=== PATIENT | female | born 1955 | race Caucasian/White ===

== ENCOUNTER 2016-12-22 14:27 | Observation (INO) | payer BC ==
[2016-12-22] MEDS ORDERED: ATROPINE SULFATE 1 MG/10 ML SYR ONE (14:34)
[2016-12-22] MEDS ORDERED: ATROPINE SULFATE 1 MG/10 ML SYR IVP ONE (14:35)
[2016-12-22] MEDS ORDERED: CALCIUM GLUCONATE 50 ML IV ONE (14:36)
[2016-12-22] MEDS ORDERED: GLUCAGON,HUMAN RECOMBINANT 1 MG VIAL IVP ONE (14:36)
--- NOTE | 2016-12-22 14:40 | CPEKG ---
Heart Rate: 55 RR Interval: 1091 P-R Interval: 216 QRSD Interval: 92 QT Interval: 500 QTC Interval: 479 P [place]: 55 QRS [place]: 44 T Wave [place]: 69 EKG Severity - ABNORMAL ECG - EKG Impression: SINUS RHYTHM Electronically Signed By: Quique Smith 22-Dec-2016 15:08:42
--- NOTE | 2016-12-22 14:52 | EDPHY ---
H & P Time Seen by Provider: 12/22/16 14:44 HPI/ROS: CHIEF COMPLAINT: Symptomatic hypotension and bradycardia HISTORY OF PRESENT ILLNESS: The patient has a history of atrial fibrillation. She has been on flecainide for approximately 3 weeks. 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 She took 25 mg of metoprolol at 10 o'clock this morning. While at work, the patient developed symptoms of presyncope. She was noted to have a systolic blood pressure in the 70-80 range. Patient was brought in by paramedics. She received a 700 ml of IV fluid in the ambulance. The patient does have a history of diabetes. The patient is apparently being scheduled for an ablation. REVIEW OF SYSTEMS: A comprehensive 10 point review of systems is otherwise negative aside from elements mentioned in the history of present illness. Source: Patient Exam Limitations: No limitations - Personal History Current Tetanus/Diphtheria Vaccine: Yes - Medical/Surgical History PMH: Past medical history: Hypertension, diabetes, atrial fibrillation - Family History Significant Family History: No pertinent family hx - Social History Smoking Status: Never smoked - Physical Exam Exam: General Appearance: Alert, no distress Eyes: Pupils equal and round no pallor or injection ENT, Mouth: Mucous membranes moist Respiratory: There are no retractions, lungs are clear to auscultation Cardiovascular: Bradycardic Gastrointestinal: Abdomen is soft and nontender, no masses, bowel sounds normal Neurological: A&O, normal motor function, normal sensory exam, normal cranial nerves Skin: Warm and dry, no rashes Musculoskeletal: Neck is supple nontender Extremities: symmetrical, full range of motion Constitutional: Initial Vital Signs Temperature (C) 36.2 C 12/22/16 14:30 Heart Rate 54 L 12/22/16 14:30 Respiratory Rate 20 12/22/16 14:30 Blood Pressure 83/63 L 12/22/16 14:30 O2 Sat (%) 99 12/22/16 14:30 O2 Delivery Mode Room Air Allergies/Adverse Reactions: No Known Allergies Allergy (Unverified 12/22/16 14:59) Home Medications: Medication Instructions Recorded Cetirizine [ZyrTEC 10 mg (*)] 10 mg PO DAILY PRN 12/22/16 Dapagliflozin Propanediol [Farxiga] 5 mg PO DAILY 12/22/16 Diclofenac Sodium [Voltaren 75 MG 75 mg PO DAILY 12/22/16 (*)] Ergocalciferol [Vitamin D2 (*)] 50,000 unit PO BARRAZA 12/22/16 Escitalopram Oxalate [Lexapro] 20 mg PO BID 12/22/16 Fenofibric Acid (Choline) 135 mg PO DAILY 12/22/16 [TRILIPIX] Flecainide Acetate 150 mg PO BID 12/22/16 Insulin Glargine,Hum.rec.anlog 10 unit SQ DAILY 12/22/16 [Toujeo Solostar] Lactase [Lactase 3000 Unit (*)] 3,000 unit PO TIDMEAL PRN 12/22/16 Lovastatin 40 mg PO DAILY18 12/22/16 Metformin HCl [Metformin 1000 mg] 1,000 mg PO DAILY 12/22/16 Metoprolol Tartrate [Lopressor 25 25 mg PO BID 12/22/16 mg (*)] Rivaroxaban [Xarelto] 20 mg PO DAILY@1200 12/22/16 Vilazodone HCl [Viibryd] 40 mg PO HS 12/22/16 sitaGLIPtin PHOSPHATE [Januvia 100 100 mg PO DAILY 12/22/16 MG (*)] traZODone [traZODONE 50MG (*)] 50 mg PO HS 12/22/16 Medical Decision Making - Diagnostics EKG Interpretation: EKG: Complete interpretation has been separately recorded in the [facility] archive. Summary impression: Sinus rhythm, rate 55 ED Course/Re-evaluation: The patient presents the ED with symptomatic hypotension relative bradycardia in the setting of a newly prescribed dose of metoprolol. The patient is currently on flecainide. The patient took 25 mg of metoprolol for the 1st time today. The patient experienced lightheadedness and dizziness. She had no true syncope. The patient reportedly had systolic blood pressure as low as 70 noted by paramedics. Upon arrival her blood pressure is 80/50. The patient had an IV established. She was placed on a building principal. Pacemaker pads were applied to her chest wall. The patient received an additional dose of IV fluids , 1 mg of atropine, calcium gluconate and glucagon. The patient was brought into the trauma resuscitation room. The patient is currently mentating appropriately. The patient will require admission to the hospital for observation in the setting of her relative hypotension or bradycardia. Consultation is made with Dr. Isac Markham from the hospitalist service. The patient did undergo a stat echocardiogram in the emergency department which demonstrates a normal ejection fraction and no evidence of a pericardial effusion. Differential Diagnosis: Differential diagnosis considered includes heart block, beta-dexter overdose, cardiogenic shock Critical Care Time: Critical care time exclusive of procedures and exclusive of the PA's time was 35 minutes, performed by myself, Quique Smith MD. The patient presents to the ED with symptomatic hypotension and possible beta-dexter toxicity. The patient required IV calcium, glucagon atropine. Curbside consultation was made with Cardiology. The patient will require admission to the intensive care unit for observation this evening. Consultation was made with Dr. cortez from the hospitalist service. - Data Points Laboratory Results: Laboratory Results 12/22/16 14:31 12/22/16 14:31 12/22/16 12/22/16 12/22/16 14:31 14:31 14:31 WBC 8.33 10^3/uL 10^3/uL (3.80-9.50) RBC 4.30 10^6/uL 10^6/uL (4.18-5.33) Hgb 12.7 g/dL g/dL (12.6-16.3) Hct 39.7 % % (38.0-47.0) MCV 92.3 fL fL (81.5-99.8) MCH 29.5 pg pg (27.9-34.1) MCHC 32.0 g/dL L g/dL (32.4-36.7) RDW 13.0 % % (11.5-15.2) Plt Count 246 10^3/uL 10^3/uL (150-400) MPV 10.9 fL fL (8.7-11.7) Neut % (Auto) 62.7 % % (39.3-74.2) Lymph % (Auto) 24.1 % % (15.0-45.0) [place] % (Auto) 9.0 % % (4.5-13.0) Eos % (Auto) 3.0 % % (0.6-7.6) Baso % (Auto) 1.0 % % (0.3-1.7) Nucleat RBC Rel Count 0.0 % % (0.0-0.2) Absolute Neuts (auto) 5.22 10^3/uL 10^3/uL (1.70-6.50) Absolute Lymphs (auto) 2.01 10^3/uL 10^3/uL (1.00-3.00) Absolute Monos (auto) 0.75 10^3/uL 10^3/uL (0.30-0.80) Absolute Eos (auto) 0.25 10^3/uL 10^3/uL (0.03-0.40) Absolute Basos (auto) 0.08 10^3/uL 10^3/uL (0.02-0.10) Absolute Nucleated RBC 0.00 10^3/uL 10^3/uL (0-0.01) Immature Gran % 0.2 % % (0.0-1.1) Immature Gran # 0.02 10^3/uL 10^3/uL (0.00-0.10) Sodium 140 mEq/L mEq/L (134-144) Potassium 4.6 mEq/L mEq/L (3.5-5.2) Chloride 105 mEq/L mEq/L (97-110) Carbon Dioxide 19 mEq/l L mEq/l (22-31) Anion Gap 16 mEq/L mEq/L (8-16) BUN 18 mg/dL mg/dL (7-23) Creatinine 1.2 mg/dL H mg/dL (0.6-1.0) Estimated GFR 46 Glucose 152 mg/dL H mg/dL (70-100) Calcium 9.8 mg/dL mg/dL (8.5-10.4) Total Bilirubin 0.6 mg/dL mg/dL (0.1-1.4) Conjugated Bilirubin 0.4 mg/dL mg/dL (0.0-0.5) Unconjugated Bilirubin 0.2 mg/dL mg/dL (0.0-1.1) AST 48 IU/L H IU/L (14-46) ALT 45 IU/L IU/L (9-52) Alkaline Phosphatase 54 IU/L IU/L (38-126) Total Protein 7.0 g/dL g/dL (6.3-8.2) Albumin 4.1 g/dL g/dL (3.5-5.0) Medications Given: Sodium Chloride (Ns) 1,000 mls @ 100 mls/hr IV CONT LATASHA Stop: 06/20/17 15:44 Last Admin: 12/22/16 16:09 Dose: 1,000 mls Discontinued Medications Atropine Sulfate (Atropine 1 Mg/10 Ml Syringe) 1 mg IVP EDNOW ONE Stop: 12/22/16 14:36 Last Admin: 12/22/16 14:35 Dose: 1 mg Glucagon (Glucagen) 5 mg IVP EDNOW ONE Stop: 12/22/16 14:37 Last Admin: 12/22/16 15:00 Dose: 5 mg Calcium Gluconate (Calcium Gluconate 1 Gm (Premix)) 50 mls @ 100 mls/hr IV EDNOW ONE Stop: 12/22/16 15:05 Last Admin: 12/22/16 14:58 Dose: 50 mls Ondansetron HCl (Zofran) 4 mg IVP EDNOW ONE Stop: 12/22/16 15:18 Last Admin: 12/22/16 15:18 Dose: 4 mg Departure - Departure Disposition: [facility] Acute Clinical Impression: Hypotension, Bradycardia Condition: Serious
[2016-12-22 14:56] LABS: % IMMATURE GRANULYOCYTES 0.2 % (0.0-1.1); ABSOLUTE IMMATURE GRANULOCYTES 0.02 10^3/uL (0.00-0.10); ADD DIFF? NO; ADD MORPH? NO; ADD SCAN? NO; ATYPICAL LYMPHOCYTE FLAG 10 (0-99); FRAGMENT RBC FLAG 0 (0-99); HEMATOCRIT 39.7 % (38.0-47.0); HEMOGLOBIN 12.7 g/dL (12.6-16.3); LEFT SHIFT FLG 0 (0-99); LIPEMIA HEMOLYSIS FLAG 80 (0-99); MEAN CELL HEMOGLOBIN 29.5 pg (27.9-34.1); MEAN CELL VOLUME 92.3 fL (81.5-99.8); MEAN PLATELET VOLUME 10.9 fL (8.7-11.7); PLATELET CLUMPS FLAG 20 (0-99); PLATELET COUNT 246 10^3/uL (150-400)
[2016-12-22 15:04] LABS: ANION GAP 16 mEq/L (8-16); CALCIUM 9.8 mg/dL (8.5-10.4); CARBON DIOXIDE 19 mEq/l (22-31); CHLORIDE 105 mEq/L (97-110); CREATININE 1.2 mg/dL (0.6-1.0); GLOMERULAR FILTRATION RATE 46; GLUCOSE 152 mg/dL (70-100); POTASSIUM 4.6 mEq/L (3.5-5.2); SODIUM 140 mEq/L (134-144)
[2016-12-22] MEDS ORDERED: ONDANSETRON 4 MG/2 ML VIAL ONE (15:06)
[2016-12-22] MEDS ORDERED: PROMETHAZINE HCL 25 MG/ML INJ IVP PRN (15:16)
[2016-12-22] MEDS ORDERED: ACETAMINOPHEN 325 MG TAB PO PRN (15:16)
[2016-12-22] MEDS ORDERED: PROMETHAZINE HCL 25 MG TAB PO PRN (15:16)
[2016-12-22] MEDS ORDERED: ONDANSETRON 4 MG/2 ML VIAL IVP ONE (15:17)
[2016-12-22] MEDS ORDERED: D50W 25 GM/50 ML SYR IVP PRN (15:44)
[2016-12-22] MEDS: NS 1,000 ML IV SCH (16:09)
[2016-12-22] MEDS ORDERED: CETIRIZINE 10 MG TAB PO PRN (16:25)
--- NOTE | 2016-12-22 16:37 | GHP ---
[f rep st] HISTORY AND PHYSICAL DATE OF ADMISSION: 12/22/2016 CHIEF COMPLAINT: Presyncope. HISTORY OF PRESENT ILLNESS: This is a 61-year-old female with a history of atrial fibrillation, followed by an [facility], Dr. Elton Garcia in [place] who presents with presyncope. She has had very difficult to control atrial fibrillation. She had previously been on Multaq until about 3 to 4 weeks ago. At that point, she was cardioverted and started on flecainide. She has had a recorder since then, which has shown ongoing paroxysmal atrial fibrillation. Yesterday, she saw Dr. Garcia who recommended that she start metoprolol 25 mg twice daily in addition to her flecainide. Her flecainide dose is 150 mg twice a day. She took that at about 10 a.m. About 1, she felt very dizzy. She said that whenever she stood up, she had trouble hearing. She felt as though she was going to faint. She did not faint or fall, however. Symptoms were worse when standing. She thought that she was hypoglycemic and she ate some candy, which did not help. She presents to the emergency department with the initial blood pressure of 85/62, heart rate of 56. In the emergency department, she received atropine, calcium and glucagon. Her hemodynamics did not change significantly. She had an episode of vomiting in the ED for which she received Zofran. She is denying any chest pain or shortness of breath. PAST MEDICAL AND SURGICAL HISTORY: 1. Diabetes mellitus type 2, switching to insulin soon. 2. Atrial fibrillation, as above, and on Xarelto. 3. Obstructive sleep apnea. 4. Depression. 5. Anxiety. MEDICATIONS: Please see medication reconciliation. ALLERGIES: No known drug allergies. FAMILY HISTORY: Reviewed and noncontributory. 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 She drinks about 1- glass of wine a month. She does not smoke. REVIEW OF SYSTEMS: A 10-point Review of Systems is conducted and is negative except per HPI. PHYSICAL EXAM: VITAL SIGNS: Current blood pressure 89/66, heart rate 64, respiration rate 22, saturating 94% on 4 L. GENERAL: The patient is a pleasant female who is resting comfortably. No acute distress. HEENT: Shows her to be normocephalic, atraumatic. CARDIOVASCULAR: Borderline bradycardic. There are no murmurs, rubs, or gallops. PULMONARY: Shows her lungs to be clear to auscultation bilaterally. ABDOMEN: Soft, nontender, nondistended. SKIN: Shows no rash. EXAM: Shows no Ho. NEUROLOGIC: Exam shows her to be alert and oriented x3. She is moving all extremities. PSYCHIATRIC: Exam shows normal mood and affect. LABS: CBC is unremarkable. Bicarb is 19, creatinine is 1.2. Glucose 152. DATA: 1. I discussed Dr. Smith, will admit to the step-down unit. 2. I personally reviewed and interpreted her EKG. This shows sinus rhythm. There are no acute ischemic changes. Her rate is 55. IMPRESSION AND PLAN: This is a 61-year-old female with possible beta-dexter overdose. 1. Possible beta-dexter overdose, hypotension, bradycardia: She is taking flecainide 150 mg twice a day and started metoprolol tartrate 25 mg this morning. We will certainly hold these medications now. She is mentating appropriately. I discussed with Dr Strauss - this may represent a BB overdose, vaso-vagal reaction or other cause of hypotension. I will get a stat echo. I will continue IV fluids. I see no evidence of sepsis. Her outpatient mailing manager is Dr. Garcia. 2. Diabetes mellitus: We will check her blood sugars and let her take her home medicines per her request. 3. Depression: Will continue her Lexapro. 4. Code status: She would like to be a full code. 5. Venous thromboembolism risk: She is moderate, however, she is admitted as observation. If she stays, would start VTE prophylaxis. /[id number]/MODL MTDD
--- NOTE | 2016-12-22 16:46 | ECHO ---
[id number] + + [address] : : [place] [address] : : [phone] + + Adult Echocardiographic Report + --------+ :Name: ANUJ MADDEN LStudy Date: 12/22/2016 04:20 PM : : Hospital Admission Number: [id number] Juanis bills: ER: :: 1955 Gender: Female Height: 62 i n : :Age: 61 yrs Race: WH Weight: 170 lb : :Reason For Study: Hypotension : : BSA: 1.8 met ers2 : + --------+ MMode/2D Measurements & Calculations IVSd: 0.93 cm LVIDd: 4.7 cm FS: 26.4 % MV Diam: 3.1 cm LVPWd: 0.79 cm LVIDs: 3.5 cm EDV(Teich): 102.4 ml ESV(Teich): 49.5 ml EF(Teich): 51.7 % Ao root diam: LVOT diam: 1.9 cmLVLd ap4: 7.0 cm SV(MOD-sp4): 3.5 cm LVOT area: EDV(MOD-sp4): 46.0 ml LA dimension: 2.8 cm2 69.0 ml 4.3 cm LVLs ap4: 5.3 cm ESV(MOD-sp4): 23.0 ml EF(MOD-sp4): 66.7 % Normal Measurement Values: + + :LVIDd (3.5-5.7cm) IVSd (0.6-1.1cm) LVPWd (0.6-1.1cm) Aortic Root (2.0-3.7cm)Left Atrium (1.5-4.0cm): :LV Vol(d) (76-115ml) LV Vol(s) (29-48ml) Ejec Fraction (50-65%)PV Chele (0.6- 1.2m/s) TV Chele (0.4-1.0m/s) : :MV E Chele (0.8-1.0m/s)MV A Chele (0.3-1.0m/s)LVOT Chele (0.7-1.2m/s) Asc Ao Chele ( 0.9-1.8m/s) : + + Doppler Measurements & Calculations MV E max chele: MV V2 max: Ao V2 max: LV V1 max: 104.0 cm/sec 127.0 cm/sec 98.6 cm/sec 52.6 cm/sec MV A max chele: MV max P.5 mmHg Ao max PG: LV V1 max P.7 cm/sec MV V2 mean: 3.9 mmHg 1.1 mmHg MV E/A: 4.4 60.2 cm/sec Ao mean PG: LV V1 mean PG: MV mean P.0 mmHg2.0 mmHg 1.0 mmHg MV V2 VTI: 30.7 cm Ao V2 mean: LV V1 mean: MV area (1 diam): 66.6 cm/sec 37.0 cm/sec 7.5 cm2 Ao V2 VTI: 20.6 cm LV V1 VTI: 11.0 cm SAIMA(I,D): 1.5 cm2 MVA(VTI): 1.0 cm2 MV Flow area(1diam):SAIMA(V,D): 1.5 cm2 7.5 cm2 MR max chele: MR(RF 1 diam): 8.8 %SV(MV 1 diam): TR max chele: 372.0 cm/sec 231.7 ml 300.0 cm/sec MR max PG: SI(MV 1 diam): TR max P.4 mmHg 129.9 ml/m2 36.0 mmHg SV(LVOT): 31.2 ml RAP systole: 10.0 mmHg RVSP(TR): 46.0 mmHg RF(MV,Ao)(1 diam): 0.14 RF(MV,LVOT)(1diam): 0.87 Left Ventricle The left ventricle is normal in size. There is normal left ventricular wall thickness. Left ventricular systolic function is normal. Ejection Fraction = 70-75%. No regional wall motion abnormalities noted. Right Ventricle The right ventricle is normal in size and function. Atria The left atrium is moderately dilated. The right atrium is moderately dilated. The interatrial septum is intact with no evidence for an atrial septal defect. Mitral Valve The mitral valve is normal in structure and function. There is no evidence of mitral valve prolapse. There is no mitral valve stenosis. There is moderate to severe mitral regurgitation. Tricuspid Valve Normal tricuspid valve. There is moderate tricuspid regurgitation. Right ventricular systolic pressure is 46mmHg. There is Doppler evidence for mild pulmonary hypertension. Aortic Valve The aortic valve is trileaflet. The aortic valve opens well. There is no aortic stenosis. There is no aortic insufficiency. Pulmonic Valve The pulmonic valve is normal in structure and function. Trace pulmonic valvular regurgitation. Great Vessels The aortic root is normal size. Pericardium/Pleural There is no pericardial effusion. Conclusion A complete two-dimensional transthoracic echocardiogram was performed (2D, M-mode, Doppler and color flow Doppler). Left ventricular systolic function is normal. Ejection Fraction = 70-75%. The left atrium is moderately dilated. The right atrium is moderately dilated. There is moderate to severe mitral regurgitation. There is moderate tricuspid regurgitation. Right ventricular systolic pressure is 46mmHg. There is Doppler evidence for mild pulmonary hypertension. Trace pulmonic valvular regurgitation. Final Reading Physician: Edwin Mcgrath signed on 12/22/2016 04:45 PM Ordering Physician: Isac Markham Performed By: Francine Davies RDCS
[2016-12-22 16:49] LABS: ALBUMIN 4.1 g/dL (3.5-5.0); BILIRUBIN,TOTAL 0.6 mg/dL (0.1-1.4); BILIRUBIN-CONJUGATED 0.4 mg/dL (0.0-0.5); BILIRUBIN-UNCONJUGATED 0.2 mg/dL (0.0-1.1)
[2016-12-22] MEDS ORDERED: PRAVASTATIN SODIUM 40 MG TAB PO SCH (18:00)
[2016-12-22] MEDS ORDERED: Vilazodone Hcl [Viibryd] 40 MG PO SCH (21:00)
[2016-12-22] MEDS ORDERED: traZODone 50 MG TAB PO SCH (21:00)
[2016-12-22] MEDS: LORazepam 0.5 MG TAB PO PRN (21:06)
[2016-12-22] MEDS: ESCITALOPRAM OXALATE 10 MG TAB PO SCH (21:06)
[2016-12-22] MEDS ORDERED: LACTASE 3,000 UNIT TAB PO PRN (21:26)
[2016-12-22] MEDS ORDERED: INSULIN GLARGINE HUM REC ANLOG SC SCH (23:00)
[2016-12-23] MEDS: NS 1,000 ML IV SCH (03:30)
[2016-12-23 03:31] VITALS: O2SAT 92
[2016-12-23] MEDS: LORazepam 0.5 MG TAB PO PRN (03:53)
[2016-12-23 06:41] LABS: % IMMATURE GRANULYOCYTES 0.3 % (0.0-1.1); ABSOLUTE IMMATURE GRANULOCYTES 0.02 10^3/uL (0.00-0.10); ADD DIFF? NO; ADD MORPH? NO; ADD SCAN? NO; ATYPICAL LYMPHOCYTE FLAG 10 (0-99); FRAGMENT RBC FLAG 0 (0-99); HEMATOCRIT 36.2 % (38.0-47.0); HEMOGLOBIN 11.3 g/dL (12.6-16.3); LEFT SHIFT FLG 0 (0-99); LIPEMIA HEMOLYSIS FLAG 80 (0-99); MEAN CELL HEMOGLOBIN 29.4 pg (27.9-34.1); MEAN CELL HEMOGLOBIN CONCENTR. 31.2 g/dL (32.4-36.7); MEAN CELL VOLUME 94.3 fL (81.5-99.8); MEAN PLATELET VOLUME 10.8 fL (8.7-11.7); PLATELET CLUMPS FLAG 0 (0-99); PLATELET COUNT 138 10^3/uL (150-400); RED BLOOD CELL COUNT 3.84 10^6/uL (4.18-5.33); RED CELL DISTRIBUTION WIDTH 13.1 % (11.5-15.2)
[2016-12-23 06:50] LABS: ANION GAP 9 mEq/L (8-16); CALCIUM 8.5 mg/dL (8.5-10.4); CARBON DIOXIDE 20 mEq/l (22-31); CHLORIDE 110 mEq/L (97-110); CREATININE 0.9 mg/dL (0.6-1.0); GLOMERULAR FILTRATION RATE > 60; GLUCOSE 123 mg/dL (70-100); POTASSIUM 4.2 mEq/L (3.5-5.2); SODIUM 139 mEq/L (134-144)
[2016-12-23 07:01] LABS: TROPONIN I < 0.012 ng/mL (0.000-0.034)
[2016-12-23] MEDS ORDERED: INSULIN GLARGINE HUM REC ANLOG SC SCH ×2 (09:00→21:00)
[2016-12-23] MEDS ORDERED: INSULIN GLARGINE 100 UNITS/ML SYRINGE SC SCH (09:00)
[2016-12-23] MEDS ORDERED: metFORMIN HCL 500 MG TAB PO SCH (09:00)
[2016-12-23] MEDS ORDERED: FENOFIBRATE 145 MG TAB PO SCH (09:00)
--- NOTE | 2016-12-23 09:54 | HOSPPROG ---
Hospitalist Progress Note Assessment/Plan: 61 yo F admitted s ymptomatic bradycardia following addition of metoprolol to flecainide resolved home start lower dose BB tomorrow see dc summary Subjective: tele: no pauses (interp by me). feels better Objective: Vital Signs Temp Pulse Resp BP Pulse Ox 36.4 C 68 21 H 116/63 92 12/23/16 03:30 12/23/16 03:30 12/23/16 03:30 12/23/16 03:30 12/23/16 03:30 Laboratory Results 12/23/16 06:00 12/23/16 06:00 12/22/16 12/23/16 12/24/16 05:59 05:59 05:59 Intake Total 1752 Output Total 50 Balance 1702 - Physical Exam Constitutional: no apparent distress, appears nourished Eyes: PERRL, anicteric sclera Ears, Nose, Mouth, Throat: moist mucous membranes, hearing normal Cardiovascular: regular rate and rhythym, no murmur, rub, or gallop, No systolic murmur, No bradycardia Respiratory: no respiratory distress, no rales or rhonchi Gastrointestinal: normoactive bowel sounds, soft, non-tender abdomen Genitourinary: No salazar in urethra Skin: warm, normal color Musculoskeletal: full muscle strength, no muscle tenderness ICD10 Worksheet Patient Problems: Problems Problem Status Onset Bradycardia Acute Hypotension Acute
[2016-12-23 10:00] VITALS: BP 103/61; PULSE 78; RESP 15; TEMP 98.6
[2016-12-23] MEDS: ESCITALOPRAM OXALATE 10 MG TAB PO SCH (10:00)
--- NOTE | 2016-12-23 10:25 | GDS ---
[f rep st] DISCHARGE SUMMARY DISCHARGE DIAGNOSES: 1. Atrial fibrillation. 2. Symptomatic bradycardia with lightheadedness and dizziness. 3. Diabetes. HOSPITAL COURSE: Please see admission history and physical by Dr. Isac Markham. The patient had atrial fibrillation diagnosed in September, has been a little bit difficult to control. This is well john cribed in Dr. Markham's note. 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 She had been on 12.5 twice daily of metoprolol tartrate, was increased to 25 twice daily. A few hours after taking the 1st tablet she was at work and became presyncopal, lightheadedness, dizzy, felt unwell. She was hypoglycemic but her sugar was 170. She presented to the hospital where her systolic blood pressure was in the 80s with a pulse in the 50s. She was followed on telemetry. Her pulse remained in the 50s without pauses and slowly ros e into the 70s with improvement in her symptoms. Notably, she had an EKG that showed sinus bradycard ia in the 50s without ST or T changes. She had a negative troponin while here. She had an echocardi ogram showing modestly elevated right-sided pressures consistent with a patient with sleep apnea. Sh e had intact LV function and no significant valvular lesions. The patient is discharged home today. She was advised to follow up with her machining and assembly supervisor, Dr. Omar Delacruz in the [facility] in [place]. She was advised to start taking metoprolol 12.5 twice daily on the morning of the . Copy requested to: Omar Delacruz MD /[id number]/[facility]
[2016-12-23] MEDS ORDERED: RIVAROXABAN 20 MG TAB PO SCH (12:00)
[2016-12-26] MEDS ORDERED: ERGOCALCIFEROL 50,000 I.UNIT CAP PO SCH (09:00)
== END 2016-12-23 10:57 | disposition home or self-care (01) ==
LOC: F2N 17:06
PROVIDERS: ADMIT Student in an Organized Health Care Education/Training Program; ATTEND Student in an Organized Health Care Education/Training Program
DX: R55 Syncope and collapse (principal); I95.9 Hypotension, unspecified; R00.1 Bradycardia, unspecified; T44.7X1A Poisoning by beta-adrenoreceptor antagonists, accidental (unintentional), initial encounter; I48.0 Paroxysmal atrial fibrillation; E11.9 Type 2 diabetes mellitus without complications; Z79.01 Long term (current) use of anticoagulants; G47.33 Obstructive sleep apnea (adult) (pediatric); F41.8 Other specified anxiety disorders
CPT/HCPCS: 71020; 93005; 93306; G0378; 96365; J0461; J0610; J1610; J1815; J2405; J2550

== ENCOUNTER → 2018-07-03 | Outpatient (CLI) | payer BC, OTHER | LOC: EMCIMAGING 08:52 | PROVIDERS: ATTEND Nurse Practitioner | DX: Z12.31 Encounter for screening mammogram for malignant neoplasm of breast (principal) | CPT/HCPCS: 77067-PN ==